=== PATIENT | female | born 1990 | race Caucasian/White ===

== ENCOUNTER 2022-11-30 14:29 | Outpatient (CLI) | payer OTHER ==
[2022-11-30 17:54] LABS: THYROID STIMULATING HORMONE 0.78 uIU/mL (0.34-5.60)
== END 2022-11-30 14:30 | disposition home or self-care (01) ==
LOC: LAB.N 14:29 → MERGE 14:29 → LAB.N 14:30
PROVIDERS: ATTEND Physician Assistant
DX: R53.82 Chronic fatigue, unspecified (principal)
CPT/HCPCS: 36415; 84443